=== PATIENT | female | born 1990 | race Caucasian/White ===

== ENCOUNTER 2020-04-17 19:16 | Emergency (ER) | payer BC ==
[~2020-04-17] VITALS: Ht 172.7 cm; Wt 63.5 kg
[2020-04-17] MEDS ORDERED: Ketorolac 30mg Inj IM ONE (19:30)
[2020-04-17] MEDS ORDERED: HYDROcodone/Acetamin 5/325 tab ORAL ONE (19:30)
[2020-04-17] MEDS ORDERED: NORCO 7.5-3251 EACH ORAL (20:02)
[2020-04-17] MEDS ORDERED: IBUPROFEN600 M1 ORAL (20:02)
--- NOTE | 2020-04-17 20:07 | Diagnostic Imaging Report ---
EXAM: XR Left Ankle Complete, 2 or More Views CLINICAL HISTORY: INJ TECHNIQUE: AP and oblique views of the left ankle were obtained. COMPARISON: No relevant prior studies available. FINDINGS: No acute fracture or dislocation of the left ankle seen. Extra-articular displaced fracture at the base of the left 5th metatarsal bone (donald images). Soft tissue edema at the lateral aspect of the left foot is present. IMPRESSION: Extra-articular displaced fracture at the base of the left 5th metatarsal bone (Perdomo fracture), with associated soft tissue edema at the lateral aspect of the foot.
--- NOTE | 2020-04-17 20:09 | Emergency Room Report ---
History of Present Illness General Chief Complaint: Lower Extremity Injury Source: Patient Present Illness HPI Disclaimer: Please note that this report is being documented using DRAGON technology. This can lead to erroneous entry secondary to incorrect interpretation by the dictating instrument. HPI: 30-year-old female presents for evaluation of left foot injury. Patient states she was working out today sliding back and forth on a slippery surface when she stepped off the slippery surface onto the grass causing her left foot to be trapped underneath her weight. She noted immediate pain and deformity over the base of the fourth and fifth metatarsals. Pain with bearing weight. Denies significant pain or swelling in the ankle. No other injuries reported. No head injury or loss of conscious. No prior history of injury. 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 EOMI. Resp: Normal work of breathing Skin: Intact. No abrasions, laceration or rash over the exposed skin MSK: Normal tone and bulk. Moving all extremities. There is a swelling over the dorsum of the left foot over the fourth and fifth metatarsal regions. Pain with active and passive flexion of the digits. No tenderness over the medial or lateral malleoli. No swelling around the ankle. No open skin lesions. 2+ PT and DP pulses. Neuro: Awake and alert. Mentating appropriately Procedures Splinting Splinting : Consent: Verbal Hand-Made Type: plaster Splint: poserior short Pre-Proc Neuro Vasc Exam: normal Post-Proc Neuro Vasc Exam: normal Patient Tolerated: Well Complications: None Medical Decision Making Diagnostic Impression: Primary Impression: Fracture of fifth metacarpal bone Qualified Codes: S62.347A - Nondisplaced fracture of base of fifth metacarpal bone, left hand, initial encounter for closed fracture Additional Impression: Perdomo fracture ER Course 30-year-old female presents for evaluation of left foot injury while exercising. Concern for fracture dislocation x-rays were obtained. X-rays concerning for Perdomo fracture. No obvious injury to the ankle. Patient was placed in a short posterior splint and provided with crutches. She will remain nonweightbearing until she is able to see orthopedic surgery. Instructed on care of a splint, rice treatment for injuries, proper medication dosing and need to follow-up with orthopedic surgery. Copy of her x-rays were provided on CD and paper printout. Stable for outpatient treatment. Instructed to return with new or worsening symptoms. Other X-Ray Diagnostic Results Other X-Ray Diagnostic Results #1: X-Ray ordered: Left ankle # of Views/Limited Vs Complete: Complete Indication: Pain EP Interpretation: Yes Interpretation: no dislocation, no soft tissue swelling, no fractures Impression: No acute disease Electronically Signed by: Electronically signed by Dr. Edward Burris Other X-Ray Diagnostic Results #2: X-Ray ordered: Left foot # of Views/Limited Vs Complete: Complete Indication: Pain EP Interpretation: Yes Interpretation: no dislocation, other - Perdomo versus pseudo-Perdomo fracture of the base of the fifth metatarsal with soft tissue swelling Impression: Other - Acute fracture of base of the fifth metatarsal Electronically Signed by: Electronically signed by Dr. Edward Burris Last Vital Signs Date Time Temp Pulse Resp B/P (MAP) Pulse Ox O2 Delivery O2 Flow Rate FiO2 04/17/20 19:25 98.4 79 19 124/89 (101) 99 Room Air Disposition: HOME, SELF-CARE Condition: Stable Scripts Hydrocodone Bit/Acetaminophen 7.5-325* (NORCO 7.5-325*) 1 Each Tablet 1 TAB ORAL Q6H PRN for For Pain, #12 TAB 0 Refills Prov: Edward Burris MD 04/17/20 Ibuprofen* (MOTRIN*) 600 Mg Tablet 600 MG ORAL Q6H PRN for For Pain, #30 TAB 0 Refills Prov: Edward Burris MD 04/17/20 Referrals: Chaz Toscano MD NOT CHOSEN IPA/,REFERRING (PCP) Ethan Mayer MD [facility] Open 24 hour /7 days a week by Appointment Only [address] [facility] [address] Departure Forms: Return to Work Other Restrictions: None weight bearing left lower extremity Work Restrictions: No Prolonged Standing Patient Instructions: Metatarsal Fracture, Cast or Splint Care, RICE for Routine Care of Injuries Additional Instructions: Keep the cast clean and dry and follow-up with orthopedic surgery as soon as possible to discuss your either Perdomo or pseudo-Perdomo fracture of the left fifth metatarsal. Use the crutches and do not bear any weight on the left foot until cleared to do so by orthopedic surgery. Do not perform any strenuous physical activity. Use the pain medication as instructed. Perform routine RICE care for injuries. Return to the ED with new or worsening symptoms. Edward Burris MD Apr 17, 2020 20:09
[2020-04-17 20:45] VITALS: BP 118/90
[2020-04-18] MEDS ORDERED: COLACE100 MG ORAL ×2 (15:03→15:04)
[2020-04-18] MEDS ORDERED: ZOFRAN4 M1 ORAL ×2 (15:03→15:04)
--- NOTE | 2020-04-18 15:08 | Emergency Room Report ---
Physical Exam Vital Signs Date Time Temp Pulse Resp B/P (MAP) Pulse Ox O2 Delivery O2 Flow Rate FiO2 04/17/20 19:25 98.4 79 19 124/89 (101) 99 Room Air Medical Decision Making Diagnostic Impression: Primary Impression: Fracture of fifth metacarpal bone Qualified Codes: S62.347A - Nondisplaced fracture of base of fifth metacarpal bone, left hand, initial encounter for closed fracture Additional Impression: Perdomo fracture ER Course Patient called today complaining that while she has to stay on hold for 15 minutes to speak to her provider I explained to her that this is an emergency department and as patient did not want to talk to the charge nurse regarding her concern I apologize that she had to wait however patient continued complaining and reported that even the Burnet that we gave her did not help with the pain explained to her that she needs to follow with mortgage loan specialist however she reported that she has not done so yet and I explained that she cannot take any other narcotic at this time as it was prescribed to her just last night. Patient also complaining of nausea and constipation which may be secondary to Burnet. Patient also gives asking for something stronger than Burnet when I told him that she is already on narcotic and cannot get another prescription of narcotics while taking prescription for higher dose of Burnet has only taken it for 1 day patient given something stronger pain medication I will refer her to follow-up with mortgage loan specialist reported that she is trying to find one. Also I offered ibuprofen 800 instead of 600 100 patient did not want any. Zofran 4 mg and Colace 100 mg were called into patient pharmacy of choice. Last Vital Signs Date Time Temp Pulse Resp B/P (MAP) Pulse Ox O2 Delivery O2 Flow Rate FiO2 04/17/20 20:45 98.4 80 19 118/90 99 Room Air Disposition: HOME, SELF-CARE Condition: Stable Scripts Docusate Sodium* (COLACE*) 100 Mg Capsule 100 MG ORAL TWICE A DAY, #20 CAP Prov: Eloisa Kearns 04/18/20 Ondansetron (Zofran) 4 Mg Tablet 4 MG ORAL Q6H PRN for Nausea & Vomiting, #14 TAB Prov: Eloisa Kearns 04/18/20 Hydrocodone Bit/Acetaminophen 7.5-325* (NORCO 7.5-325*) 1 Each Tablet 1 TAB ORAL Q6H PRN for For Pain, #12 TAB 0 Refills Prov: Edward Burris MD 04/17/20 Ibuprofen* (MOTRIN*) 600 Mg Tablet 600 MG ORAL Q6H PRN for For Pain, #30 TAB 0 Refills Prov: Edward Burris MD 04/17/20 Referrals: Chaz Toscano MD NOT CHOSEN IPA/MD,REFERRING (PCP) Ethan Mayer MD [facility] Open 24 hour /7 days a week by Appointment Only [address] [facility] [address] [facility] [address] Departure Forms: Return to Work Other Restrictions: None weight bearing left lower extremity Work Restrictions: No Prolonged Standing Patient Instructions: Metatarsal Fracture, Cast or Splint Care, RICE for Routine Care of Injuries Additional Instructions: Keep the cast clean and dry and follow-up with orthopedic surgery as soon as possible to discuss your either Perdomo or pseudo-Perdomo fracture of the left fifth metatarsal. Use the crutches and do not bear any weight on the left foot until cleared to do so by orthopedic surgery. Do not perform any strenuous physical activity. Use the pain medication as instructed. Perform routine RICE care for injuries. Return to the ED with new or worsening symptoms. Eloisa Kearns Apr 18, 2020 15:08
--- NOTE | 2020-04-18 16:44 | Diagnostic Imaging Report ---
Indication: Trauma, pain Technique: 3 views left foot Comparison: none Findings: . There is a transverse fracture the base of the fifth metatarsal. No other acute fractures. No dislocations. The joint spaces are preserved. Impression: Positive for fifth metatarsal base fracture
== END 2020-04-17 20:45 | disposition home or self-care (01) ==
LOC: EMR 19:35
DX: S92.352A Displaced fracture of fifth metatarsal bone, left foot, initial encounter for closed fracture (principal); X58.XXXA Exposure to other specified factors, initial encounter; Y92.9 Unspecified place or not applicable
CPT/HCPCS: 29515; 73610; 73630; 96372; 99284; J1885